=== PATIENT | female | born 1930 | race Caucasian/White ===

== ENCOUNTER 2016-12-01 07:19 | Inpatient (IN) | payer OTHER ==
[~2016-12-01] VITALS: Ht 165.1 cm; Wt 77.1 kg
[2016-12-01] VITALS (9 sets, daily range): BP systolic 127–176; BP diastolic 47–83
[~2016-12-01 07:19] MED LIST: AMBIEN10 MG PO; AMLODIPINE-BEN1 EAC2 PO; AMOXICILLIN500 M1 PO; ATARAX,VISTARIL50 MG PO; ATIVAN0.5 MG PO; CALCIUM 500 +1 EACH PO; CENTRUM SILVER1 EAC3 PO; CYMBALTA60 MG PO; DEPLIN-ALGAL O1 EAC1 PO; EFFEXOR XR150 MG PO; FOLIC ACID0.8 MG PO; HYDROCHLOROTH12.5 M1 PO; HYDROCHLOROTH12.5 M3 PO; HYDROXYZINE HCL50 MG PO; KLONOPIN1 MG PO; LITHIUM CARBON450 MG PO; LYRICA25 MG PO; MILK OF MAGNESI10 ML PO; MIRALAX17 GM PO; MIRTAZAPINE45 MG PO; MOBIC7.5 MG PO; OLANZAPINE PO; PROZAC40 MG PO; SEROQUEL50 MG PO; WELLBUTRIN XL300 MG PO; ZOLOFT100 MG PO; ZYPREXA15 MG PO; [UNRECOGNIZED DRUG - REMARK] PO
[2016-12-01 08:03] LABS: EOSINOPHIL (%) 0 % (0-5); HEMATOCRIT 38.9 % (36.0-46.0); IMMATURE GRANULOCYTE (%) 0.4 % (0.0-0.7); INSTRUMENT ABS NEUTROPHIL CT 4.3 K/uL; MCH 29.9 PG (29.0-34.0); MCHC 32.1 G/DL (30.0-36.0); MCV 93.1 FL (83-99); MEAN PLAT.VOLUME 10.9 uM^3 (9.5-12.4); MONOCYTE (%) 5.9 % (3-12); MONOCYTE COUNT 0.3 K/uL (0-0.8); NEUTROPHIL (%) 76.2 % (45-76); NEUTROPHIL COUNT 4.3 K/uL (1.8-6.4); PLATELET COUNT 130 K/uL (156-360); RBC DIS.WIDTH-CV 13.3 % (11.8-14.6); RBC DIS.WIDTH-SD 45.4 % (39-53); RED BLOOD COUNT 4.18 M/uL (3.80-5.20); WHITE BLOOD COUNT 5.6 K/uL (4.1-10.2)
[2016-12-01 08:19] LABS: CHLORIDE 107 mEq/L (99-109); SODIUM 141 mEq/L (136-147)
[2016-12-01 08:20] LABS: MAGNESIUM 3.5 mg/dL (1.3-2.7)
[2016-12-01 08:22] LABS: GLUCOSE 132 mg/dL (70-99)
[2016-12-01 08:23] LABS: ANION GAP 9 MEQ/L (2-14)
[2016-12-01 08:25] LABS: POTASSIUM 6.2 mEq/L (3.7-5.4); TROP-I INTERPRETATION NEGATIVE; TROPONIN-I 0.01 ng/mL (0.0-0.30)
[2016-12-01 08:54] LABS: TOTAL BILIRUBIN 0.4 mg/dL (0.0-1.0)
[2016-12-01 08:55] LABS: ALKALINE PHOSPHATASE 59 IU/L (3-129)
[2016-12-01 08:56] LABS: GFR ESTIMATE (CALCULATED) 50 mL/min/
[2016-12-01 08:57] LABS: UREA NITROGEN (BUN) 20 mg/dL (9-23)
[2016-12-01] MEDS ORDERED: PAIN & FEVER325 MG PO (09:49)
[2016-12-01] MEDS ORDERED: TEMOVATE 0.05%30 GM TP (09:52)
[2016-12-01] MEDS ORDERED: FETZIMA80 MG PO (09:53)
[2016-12-01] MEDS ORDERED: ZESTRIL10 MG PO (09:54)
[2016-12-01] MEDS ORDERED: FOLIC ACID0.4 MG PO (09:54)
[2016-12-01] MEDS ORDERED: HYDROCHLOROTH12.5 M3 PO (09:54)
[2016-12-01] MEDS ORDERED: OMEPRAZOLE20 MG PO (09:55)
[2016-12-01] MEDS ORDERED: ARIPIPRAZOLE15 MG PO (09:57)
[2016-12-01] MEDS ORDERED: VITAMIN D-3 401 EACH PO (09:57)
[2016-12-01] MEDS ORDERED: TEMOVATE 0.05%15 G1 TP (12:15)
[2016-12-01 12:23] LABS: METH RESISTANT S AUREUS PCR NEGATIVE (NEGATIVE); PROBE CHECK PASS; SPECIMEN PROCESSING CONTROL PASS
[2016-12-01 15:28] LABS: PROTHROMBIN TIME 10.2 (9.2-11.2); PTT 25.8 (25-32)
[2016-12-01 15:34] LABS: TROP-I INTERPRETATION NEGATIVE; TROPONIN-I 0.03 ng/mL (0.0-0.30)
[2016-12-01 17:43] LABS: POINT-OF-CARE METER ID UU13113696
[2016-12-01 21:24] LABS: TROP-I INTERPRETATION NEGATIVE; TROPONIN-I 0.11 ng/mL (0.0-0.30)
[2016-12-02] VITALS (8 sets, daily range): BP systolic 0–162; BP diastolic 0–90
[2016-12-02 05:52] LABS: HEMATOCRIT 37.3 % (36.0-46.0); MCH 30.9 PG (29.0-34.0); MCHC 33.5 G/DL (30.0-36.0); MCV 92.3 FL (83-99); MEAN PLAT.VOLUME 10.2 uM^3 (9.5-12.4); PLATELET COUNT 135 K/uL (156-360); RBC DIS.WIDTH-CV 13.1 % (11.8-14.6); RBC DIS.WIDTH-SD 44.7 % (39-53); RED BLOOD COUNT 4.04 M/uL (3.80-5.20); WHITE BLOOD COUNT 5.2 K/uL (4.1-10.2)
[2016-12-02 06:14] LABS: ANION GAP 7 MEQ/L (2-14); CHLORIDE 106 MEQ/L (99-109); GFR ESTIMATE (CALCULATED) > 59 mL/min/; POTASSIUM 4.2 MEQ/L (3.7-5.4); SAMPLE HEMOLYSIS CHECK 0; SAMPLE ICTERIC CHECK 0; SAMPLE LIPEMIA CHECK 0; SODIUM 139 MEQ/L (136-147); UREA NITROGEN (BUN) 16 mg/dL (9-23)
[2016-12-02 06:26] LABS: GLUCOSE 89 mg/dL (70-99)
[2016-12-02] MEDS ORDERED: LOPRESSOR25 MG PO (11:47)
[2016-12-02] MEDS ORDERED: OLANZAPINE5 MG PO (11:49)
[2016-12-03] VITALS: BP 161/67
[2016-12-03 04:00] VITALS: BP 114/39
[2016-12-03 08:00] VITALS: BP 137/55
[2016-12-03 12:00] VITALS: BP 111/51
[2016-12-03 16:00] VITALS: BP 156/69
[2016-12-03] MEDS ORDERED: AMOX TR-K CLV1 EAC4 PO (16:07)
[2016-12-03 20:00] VITALS: BP 144/55
[2016-12-04] VITALS: BP 123/44
[2016-12-04 04:00] VITALS: BP 146/55
[2016-12-04 08:00] VITALS: BP 154/62
[2016-12-04] MEDS ORDERED: CLINDAMYCIN HC300 MG PO (10:35)
[2016-12-04] MEDS ORDERED: ACIDOPHILUS1 EAC1 PO (10:35)
[2016-12-04 11:25] VITALS: BP 130/58
== END 2016-12-04 12:07 | DRG 243 ==
LOC: EME 07:19 → 4WEST 09:08 → EDOF 09:08 → 4WEST 10:46
PROVIDERS: Emergency Medicine; Hospitalist; Internal Medicine Cardiovascular Disease
DX: I44.1 Atrioventricular block, second degree (principal); F33.9 Major depressive disorder, recurrent, unspecified; L03.116 Cellulitis of left lower limb; E87.5 Hyperkalemia; R53.1 Weakness; R00.1 Bradycardia, unspecified; I16.0 Hypertensive urgency; I12.9 Hypertensive chronic kidney disease with stage 1 through stage 4 chronic kidney disease, or unspecified chronic kidney disease; N18.2 Chronic kidney disease, stage 2 (mild)
CPT/HCPCS: 71010; 80048; 80053; 81003; 82948; 83735; 84132 91; 84484; 85025; 85027; 85610; 85730; 87641; 93005; 97530 GO; 97530 GP; 99281; 99285; C1785; C1892; C1894; C1898; J0690; J1200; J1644; J2250; J3010; S0020

== ENCOUNTER 2016-12-04 08:29 | Inpatient (IN) | payer OTHER ==
[~2016-12-04] VITALS: Ht 165.1 cm; Wt 79.6 kg
[~2016-12-04 08:29] MED LIST changes: +AMOX TR-K CLV1 EAC4 PO; +ARIPIPRAZOLE15 MG PO; +FETZIMA80 MG PO; +FOLIC ACID0.4 MG PO; +LOPRESSOR25 MG PO; +OLANZAPINE5 MG PO; +OMEPRAZOLE20 MG PO; +PAIN & FEVER325 MG PO; +TEMOVATE 0.05%15 G1 TP; +TEMOVATE 0.05%30 GM TP; +VITAMIN D-3 401 EACH PO; +ZESTRIL10 MG PO
[2016-12-04] MEDS ORDERED: ACIDOPHILUS1 EAC1 PO (10:35)
[2016-12-04] MEDS ORDERED: CLINDAMYCIN HC300 MG PO (10:35)
[2016-12-04 12:42] VITALS: BP 129/68
[2016-12-04 15:43] VITALS: BP 128/60
[2016-12-05 05:42] LABS: HEMATOCRIT 35.8 % (36.0-46.0); MCH 30.3 PG (29.0-34.0); MCHC 32.4 G/DL (30.0-36.0); MCV 93.5 FL (83-99); MEAN PLAT.VOLUME 9.9 uM^3 (9.5-12.4); PLATELET COUNT 117 K/uL (156-360); RBC DIS.WIDTH-CV 13.5 % (11.8-14.6); RED BLOOD COUNT 3.83 M/uL (3.80-5.20); WHITE BLOOD COUNT 4.9 K/uL (4.1-10.2)
[2016-12-05 06:04] VITALS: BP 166/70
[2016-12-05 06:14] LABS: ALKALINE PHOSPHATASE 61 IU/L (3-129); ANION GAP 6 MEQ/L (2-14); CHLORIDE 110 MEQ/L (99-109); GFR ESTIMATE (CALCULATED) > 59 mL/min/; GLUCOSE 110 mg/dL (70-99); POTASSIUM 4.6 MEQ/L (3.7-5.4); SAMPLE HEMOLYSIS CHECK 0; SAMPLE ICTERIC CHECK 0; SAMPLE LIPEMIA CHECK 0; SODIUM 141 MEQ/L (136-147); TOTAL BILIRUBIN 0.4 MG/DL (0.0-1.0); UREA NITROGEN (BUN) 18 mg/dL (9-23)
[2016-12-05 14:39] VITALS: BP 128/68
[2016-12-06 04:51] VITALS: BP 136/59
[2016-12-06 15:03] VITALS: BP 112/68
[2016-12-07 05:04] VITALS: BP 153/66
[2016-12-07 08:43] VITALS: BP 121/58
[2016-12-07 15:13] VITALS: BP 111/61
[2016-12-08 05:24] VITALS: BP 151/67
[2016-12-08 08:04] VITALS: BP 135/60
[2016-12-08 16:07] VITALS: BP 137/61
[2016-12-09 04:50] VITALS: BP 136/61
[2016-12-09 06:13] LABS: ALKALINE PHOSPHATASE 64 IU/L (3-129); ANION GAP 5 MEQ/L (2-14); CHLORIDE 109 MEQ/L (99-109); GFR ESTIMATE (CALCULATED) > 59 mL/min/; GLUCOSE 89 mg/dL (70-99); HEMATOCRIT 34.6 % (36.0-46.0); MCH 29.4 PG (29.0-34.0); MCHC 31.5 G/DL (30.0-36.0); MCV 93.3 FL (83-99); MEAN PLAT.VOLUME 9.5 uM^3 (9.5-12.4); PLATELET COUNT 111 K/uL (156-360); POTASSIUM 4.2 MEQ/L (3.7-5.4); RBC DIS.WIDTH-CV 13.5 % (11.8-14.6); RBC DIS.WIDTH-SD 46.2 % (39-53); RED BLOOD COUNT 3.71 M/uL (3.80-5.20); SAMPLE HEMOLYSIS CHECK 0; SAMPLE ICTERIC CHECK 0; SAMPLE LIPEMIA CHECK 0; SODIUM 143 MEQ/L (136-147); TOTAL BILIRUBIN 0.4 MG/DL (0.0-1.0); UREA NITROGEN (BUN) 18 mg/dL (9-23)
[2016-12-09 06:20] LABS: WHITE BLOOD COUNT 3.2 K/uL (4.1-10.2)
[2016-12-09 15:02] VITALS: BP 122/58
[2016-12-10 05:01] VITALS: BP 128/66
[2016-12-10 14:36] VITALS: BP 125/64
[2016-12-11 05:12] VITALS: BP 144/67
[2016-12-11 15:10] VITALS: BP 129/75
[2016-12-12 05:18] VITALS: BP 153/67
[2016-12-12 15:00] VITALS: BP 126/62
[2016-12-12] MEDS ORDERED: DOCUSATE SODIU100 MG PO (18:39)
[2016-12-12] MEDS ORDERED: LOPRESSOR25 MG PO (18:39)
[2016-12-12] MEDS ORDERED: LINEZOLID600 MG PO (18:39)
[2016-12-13 05:17] VITALS: BP 106/54
== END 2016-12-13 14:38 | disposition home or self-care (01) | DRG 948 ==
LOC: 3WEST 08:29
PROVIDERS: Physical Medicine & Rehabilitation Pain Medicine
DX: R53.1 Weakness (principal); Z74.09 Other reduced mobility; R07.89 Other chest pain; G89.18 Other acute postprocedural pain; L03.116 Cellulitis of left lower limb; F32.9 Major depressive disorder, single episode, unspecified; I12.9 Hypertensive chronic kidney disease with stage 1 through stage 4 chronic kidney disease, or unspecified chronic kidney disease; N18.2 Chronic kidney disease, stage 2 (mild); L27.0 Generalized skin eruption due to drugs and medicaments taken internally; T36.0X5A Adverse effect of penicillins, initial encounter; Y92.239 Unspecified place in hospital as the place of occurrence of the external cause; R79.89 Other specified abnormal findings of blood chemistry; Z95.0 Presence of cardiac pacemaker; D69.6 Thrombocytopenia, unspecified
CPT/HCPCS: 80053; 85027; 97110 GO; 97530 GP; J1644